=== PATIENT | female | born 1975 | race Caucasian/White ===

== ENCOUNTER 2020-07-24 08:00 | Inpatient (IN) | payer OTHER ==
[2020-08-22 08:50] VITALS: BMI 25.0
--- NOTE | 2020-08-22 16:38 | CONSULT ---
Consultation: REQUESTING PROVIDER: CONSULT REQUEST: We have been asked to medically evaluate this patient for pre- operative medical optimization for Cervical 5 & 6 Corpectomies and Reconstruction w/ Cage and Plate per Dr. Patel's Note HISTORY OF PRESENT ILLNESS: 44 yo F w/ PMHx of reported HLD, arthritis in hands b/l, and migraine headaches presents for pre-operative medical evaluation for cervical surgery w/ Dr. Patel, referred by Dr. Noah Santo. Ptn endorses 2 years of neck pain and back pain in the lumbar region, constant in nature, w/ variable intensity which radiates towards her legs and arms. Pain is worse with extending sitting, which results in numbness and tingling. Ptn believes that the pain is due to her work at [employer] and the heavy lifting she has been doing there. Imaging was VITALS: T: 98.2 P: 85 BP 134/73 O2Sat 99% REVIEW OF SYSTEMS: CONSTITUTIONAL: Absent: fever, chills, diaphoresis, generalized weakness, malaise, loss of appetite, weight change HEENT: Absent: rhinorrhea, nasal congestion, throat pain, throat swelling, difficulty swallowing, mouth swelling, ear pain, eye pain, visual changes CARDIOVASCULAR: Absent: chest pain, syncope, palpitations, irregular heart rate, lightheadedness, peripheral edema RESPIRATORY: Absent: cough, shortness of breath, dyspnea with exertion, orthopnea, wheezing, stridor, hemoptysis GASTROINTESTINAL: Absent: abdominal pain, abdominal distension, nausea, vomiting, diarrhea, nicole na, hematochezia Present: Constipation GENITOURINARY: Absent: dysuria, frequency, urgency, hesitancy, hematuria, flank pain, genital pain MUSCULOSKELETAL: See HPI SKIN: Absent: rash, itching, pallor HEMATOLOGIC/IMMUNOLOGIC: Absent: easy bleeding, easy bruising, lymphadenopathy, frequent infections ENDOCRINE: Absent: unexplained weight gain, unexplained weight loss, heat intolerance, cold intolerance NEUROLOGIC: Absent:focal weakness or paresthesias, dizziness, unsteady gait, seizure, mental status changes, bladder or bowel incontinence Present: Migraine PSYCHIATRIC: Absent: anxiety, depression, suicidal or homicidal ideation, hallucinations. PHYSICAL EXAMINATION GENERAL: Awake, alert, and fully oriented, in no acute distress. HEAD: Normal with no signs of trauma. EYES: Pupils equal, round and reactive to light, extraocular movements intact, sclera anicteric, conjunctiva clear. No lid lag. EARS, NOSE, THROAT: Ears normal, nares patent, oropharynx clear without exudates. Moist mucous membranes. NECK: Normal range of motion, supple without lymphadenopathy, JVD, or masses. LUNGS: Breath sounds equal, clear to auscultation bilaterally. No wheezes, and no crackles. No accessory muscle use. HEART: Regular rate and rhythm, normal S1 and S2 without murmur, rub or gallop. ABDOMEN: Soft, nontender, not distended, normoactive bowel sounds MUSCULOSKELETAL: Normal range of motion at all joints. No bony deformities or tenderness. No CVA tenderness. UPPER EXTREMITIES: 2+ pulses, warm, well-perfused. No cyanosis. No clubbing. Cap refill <2 seconds. No peripheral edema. LOWER EXTREMITIES: 2+ pulses, warm, well-perfused. No calf tenderness. No peripheral edema. NEUROLOGICAL: Cranial nerves II-XII intact. Normal speech. Normal gait. PSYCHIATRIC: Cooperative. Good eye contact. Appropriate mood and affect. SKIN: Warm, dry, normal turgor, no rashes or lesions noted. ASSESSMENT/PLAN: Dispo: We will continue to follow the patient. Thank you for this consultative opportunity. ATTENDING PHYSICIAN STATEMENT I saw and evaluated the patient. I reviewed the resident's note and discussed the case with the resident. I agree with the resident's findings and plan as documented. SUBJECTIVE: OBJECTIVE: ASSESSMENT AND PLAN:
[2020-08-23] MEDS ORDERED: PNEUMOC 13-VAL CONJ-DIP CRM/PF 0.5 ML DISP.SYRIN IM ONE (06:43)
[2020-08-23] MEDS ORDERED: LIDOCAINE 1%/EPI 1:100000 (50 ML MULTI DOSE VIAL) ONE (07:11)
[2020-08-23] MEDS ORDERED: GENTAMICIN SO4 80 MG/2 ML VIAL ONE (07:11)
[2020-08-23] MEDS ORDERED: THROMBIN (BOVINE) 20,000 UNIT VIAL TP ONE (07:12)
[2020-08-23] MEDS ORDERED: PROPOFOL 20 ML ONE ×4 (07:43→09:53)
[2020-08-23] MEDS ORDERED: fentaNYL CITRATE 250 MCG/5 ML VIAL ONE (07:43)
[2020-08-23] MEDS ORDERED: ROCURONIUM BROMIDE 50 MG/5 ML SYRINGE ONE ×2 (07:44→09:02)
[2020-08-23] MEDS ORDERED: MIDAZOLAM HCL 2 MG/2 ML SINGLE DOSE VIAL ONE (07:44)
--- NOTE | 2020-08-23 08:17 | HP ---
History & Physical Update - History History: No Change - Physical Physical: No Change - Assessment Assessment: No Change - Plan Plan: No Change (Full H&P in chart from 08/22/20)
[2020-08-23] MEDS ORDERED: ceFAZolin SODIUM 1 GM VIAL IVPB ONE (08:45)
[2020-08-23] MEDS ORDERED: LIDOCAINE 1%/EPI 1:100000 (50 ML MULTI DOSE VIAL) INF ONE (08:49)
[2020-08-23] MEDS ORDERED: VANCOMYCIN 1,000 MG VIAL (RESTRICTED TO ID ONLY) IVPB ONE (08:50)
[2020-08-23] MEDS ORDERED: GLYCOPYRROLATE 0.2 MG/1 ML VIAL ONE (08:55)
[2020-08-23] MEDS ORDERED: DEXAMETHASONE SOD PHOSPHATE 4 MG/1 ML VIAL ONE ×2 (08:55→15:30)
[2020-08-23] MEDS ORDERED: LIDOCAINE HCL/PF 2% SDV 5ML VIAL ONE ×2 (08:55→15:30)
[2020-08-23] MEDS ORDERED: ONDANSETRON 4 MG/2 ML VIAL ONE (08:55)
[2020-08-23] MEDS ORDERED: NEOSTIGMINE METHYLSULFATE 0.5 MG/1 ML - 10 ML MDV ONE (08:55)
[2020-08-23] MEDS ORDERED: HYDROmorphone HCl 2 MG/ML VIAL ONE ×2 (08:58→10:12)
[2020-08-23] MEDS ORDERED: THROMBIN (BOVINE) 5,000 UNIT VIAL TP ONE (09:30)
[2020-08-23] MEDS ORDERED: GELATIN, ABSORBABLE 100 EACH SPONGE TP ONE (09:30)
[2020-08-23] MEDS ORDERED: diphenhydrAMINE HCL 25 MG CAPSULE (FP) PO PRN (10:48)
[2020-08-23] MEDS ORDERED: oxyCODONE HCL 5 MG TABLET PO PRN (10:48)
[2020-08-23] MEDS ORDERED: ONDANSETRON 4 MG/2 ML VIAL IVPUSH PRN (10:48)
--- NOTE | 2020-08-23 11:27 | OP ---
Operative Note - Note: Operative Date: 08/23/20 Pre-Operative Diagnosis: Cervical spondylosis Operation: C5-6 corpectomies with decompression of spondylosis and reconstruction with cage and anterior plating Post-Operative Diagnosis: Same as Pre-op Surgeon: Joe Patel Kennel Staff Member: Corby Smith Anesthesiologist/[employer]ATION HELPER: Edson Roblero Anesthesia: General Estimated Blood Loss (mls): 25 Operative Report Dictated: Yes
[2020-08-23] MEDS ORDERED: SODIUM CHLORIDE 0.9% P/F 10 ML VIAL IJ ONE (15:30)
[2020-08-23] MEDS ORDERED: ceFAZolin SODIUM 1 GM VIAL ONE ×2 (15:30→19:01)
[2020-08-23] MEDS ORDERED: VANCOMYCIN 1,000 MG VIAL (RESTRICTED TO ID ONLY) ONE (15:30)
[2020-08-23] MEDS ORDERED: LIDOCAINE HCL 2% JELLY (5 ML/TUBE) ONE (15:30)
[2020-08-23] MEDS: DOCUSATE SODIUM 100 MG CAPSULE (FP) PO SCH ×2 (16:01→21:31)
[2020-08-23] MEDS: GABAPENTIN 300 MG CAPSULE PO SCH ×2 (16:02→21:31)
[2020-08-23] MEDS: HEPARIN NA (PORCINE) 5,000 UNITS/ML 1ML VIAL SQ SCH ×2 (16:02→21:31)
--- NOTE | 2020-08-23 16:11 | HP ---
CHIEF COMPLAINT: post-operative admission PCP: HISTORY OF PRESENT ILLNESS: Patient is a 44 year old female with history of cervical radiculopathy, arthritis bilateral hands, hyperlipidemia, presents s/p C5-6 corpectomies with decompression of spondylosis and reconstruction with cage and anterior plating with Dr. Patel. She endorses history of two years of chronic neck pain with radiation to her bilateral arms. She has attempted prior injections with Dr. Bowie (pain management) that have not been significantly palliative. Upon my encounter, postoperatively, patient endorses pain is well controlled. She denies subjective fevers, chills, shortness of breath, chest pain, palpitations, abdominal pain, nausea, vomiting. Recent Travel: denies PAST MEDICAL HISTORY: cervical radiculopathy, arthritis bilateral hands, hyperlipidemia PAST SURGICAL HISTORY: tonsilectomy Social History: Smoking: smokes 1-2 cigarettes daily Alcohol: drinks occasionally on social occasion Drugs: denies illicit drug use Family History: Noncontributory Allergies No Known Allergies Allergy (Unverified 08/23/20 06:56) HOME MEDICATIONS: Home Medications Medication Instructions Recorded Gabapentin [Neurontin] 300 mg PO TID 08/22/20 Tizanidine HCl [Zanaflex (Nf) -] 2 mg NR BID 08/22/20 Albuterol Sulfate Inhaler - 2 inh PO ONCE 08/23/20 [Ventolin Hfa Inhaler -] REVIEW OF SYSTEMS CONSTITUTIONAL: Absent: fever, chills, diaphoresis, generalized weakness, malaise, loss of appetite, weight change HEENT: Absent: rhinorrhea, nasal congestion, throat pain, throat swelling, difficulty swallowing, mouth swelling, ear pain, eye pain, visual changes CARDIOVASCULAR: Absent: chest pain, syncope, palpitations, irregular heart rate, lightheadedness, peripheral edema RESPIRATORY: Absent: cough, shortness of breath, dyspnea with exertion, orthopnea, wheezing, stridor, hemoptysis GASTROINTESTINAL: Absent: abdominal pain, abdominal distension, nausea, vomiting, diarrhea, constipation, melena, hematochezia GENITOURINARY: Absent: dysuria, frequency, urgency, hesitancy, hematuria, flank pain, genital pain MUSCULOSKELETAL: Absent: myalgia, arthralgia, joint swelling, back pain, neck pain SKIN: Absent: rash, itching, pallor HEMATOLOGIC/IMMUNOLOGIC: Absent: easy bleeding, easy bruising, lymphadenopathy, frequent infections ENDOCRINE: Absent: unexplained weight gain, unexplained weight loss, heat intolerance, cold intolerance NEUROLOGIC: Absent: headache, focal weakness or paresthesias, dizziness, unsteady gait, seizure, mental status changes, bladder or bowel incontinence PSYCHIATRIC: Absent: anxiety, depression, suicidal or homicidal ideation, hallucinations. PHYSICAL EXAMINATION Vital Signs - 24 hr 08/23/20 08/23/20 08/23/20 06:39 06:46 06:47 Temperature 97.8 F 97.8 F Pulse Rate 78 78 Respiratory 20 20 Rate Blood Pressure 106/42 L 106/42 L O2 Sat by Pulse 97 97 97 Oximetry (%) 08/23/20 08/23/20 08/23/20 10:33 10:45 11:00 Temperature 98.4 F Pulse Rate 101 H 104 H 103 H Respiratory 20 16 16 Rate Blood Pressure 168/91 162/89 150/85 O2 Sat by Pulse 96 96 96 Oximetry (%) 08/23/20 08/23/20 08/23/20 11:15 11:30 11:45 Temperature Pulse Rate 102 H 94 H 98 H Respiratory 16 16 16 Rate Blood Pressure 141/74 148/88 146/70 O2 Sat by Pulse 96 95 94 L Oximetry (%) 08/23/20 08/23/20 08/23/20 12:00 12:15 12:30 Temperature Pulse Rate 96 H 96 H 96 H Respiratory 16 16 16 Rate Blood Pressure 152/68 120/80 124/78 O2 Sat by Pulse 94 L 94 L 94 L Oximetry (%) 08/23/20 08/23/20 12:45 13:00 Temperature 98.8 F Pulse Rate 96 H 94 H Respiratory 16 16 Rate Blood Pressure 130/67 124/68 O2 Sat by Pulse 94 L 95 Oximetry (%) GENERAL: Awake, alert, and fully oriented, in no acute distress. HEAD: Normal with no signs of trauma. EYES: Pupils equal, round and reactive to light, extraocular movements intact, sclera anicteric, conjunctiva clear. No lid lag. EARS, NOSE, THROAT: Ears normal, nares patent, oropharynx clear without exudates. Moist mucous membranes. NECK: Cervical collar in place. Anterior surgical site bandaged clean, dry, intact. Negative stridor auscultated. LUNGS: Breath sounds equal, clear to auscultation bilaterally. No wheezes, and no crackles. No accessory muscle use. HEART: Regular rate and rhythm, normal S1 and S2 without murmur, rub or gallop. ABDOMEN: Soft, nontender, not distended, normoactive bowel sounds, no guarding, no rebound, no masses. No hepatomegaly or splenomegaly. MUSCULOSKELETAL: Normal range of motion at all joints. No bony deformities or tenderness. No CVA tenderness. UPPER EXTREMITIES: 2+ pulses, warm, well-perfused. No cyanosis. No clubbing. No peripheral edema. LOWER EXTREMITIES: 2+ pulses, warm, well-perfused. No calf tenderness. No peripheral edema. NEUROLOGICAL: Cranial nerves II-XII intact. Normal speech. Normal gait. PSYCHIATRIC: Cooperative. Good eye contact. Appropriate mood and affect. SKIN: Warm, dry Laboratory Results - last 24 hr 08/23/20 08:40 Blood Type A NEGATIVE Antibody Screen Negative Crossmatch See Detail ASSESSMENT/PLAN: Patient is a 44 year old female with history of cervical radiculopathy, arthritis bilateral hands, hyperlipidemia, presents s/p C5-6 corpectomies with decompression of spondylosis and reconstruction with cage and anterior plating with Dr. Patel. Cervical radiculopathy -s/p C5-6 corpectomies with decompression of spondylosis and reconstruction with cage and anterior plating with Dr. Patel. -Ancef 1 gram Q8 hours x3 doses postoperatively -Pain management with Oxycodone, Morphine -Physical therapy evaluation -LR at 125mL/ hour -Soft diet, advance per surgery -Continue home Gabapentin History of mild, intermittent asthma -Currently not in exacerbation -Albuterol 2 puffs q4 hours PRN History of hyperlipidemia -Currently not on statin -Obtain fasting lipid panel FEN -LR at 125mL/ hour -Follow BMP -Soft diet Prophylaxis Disposition -Admit to medical -surgical floor Anticipate discharge home within 24- 48 hours Family Medical History Family History: Unremarkable Visit type - Emergency Visit Emergency Visit: Yes ED Registration Date: 08/23/20 Care time: The patient presented to the Emergency Department on the above date and was hospitalized for further evaluation of their emergent condition. - New Patient This patient is new to me today: No - Critical Care Critical Care patient: No ATTENDING PHYSICIAN STATEMENT I saw and evaluated the patient. I reviewed the resident's note and discussed the case with the resident. I agree with the resident's findings and plan as documented. SUBJECTIVE: OBJECTIVE: ASSESSMENT AND PLAN:
[2020-08-23] MEDS: morphine SULFATE 4 MG/ML VIAL IVPUSH PRN ×2 (17:04→21:35)
[2020-08-23] MEDS: LACTATED RINGERS SOLUTION 1,000 ML/1,000 ML INFUS.BAG IV SCH ×2 (17:05→19:06)
[2020-08-23] MEDS ORDERED: CEFAZOLIN 1 GM/D5W 1 GM/50 ML BAG IVPB SCH (18:00)
[2020-08-23] MEDS ORDERED: CEFAZOLIN 1 GM in DEXTROSE 5%-WATER - 50 ML IVPB SCH (18:27)
[2020-08-23] MEDS: oxyCODONE HCL 5 MG TABLET PO PRN ×2 (18:28→22:37)
--- NOTE | 2020-08-23 18:55 | PN ---
Teaching Attending Note Name of Resident: Sánchez Aguilarjonny ATTENDING PHYSICIAN STATEMENT I saw and evaluated the patient. I reviewed the resident's note and discussed the case with the resident. I agree with the resident's findings and plan as documented. ATTENDING PHYSICIAN STATEMENT I saw and evaluated the patient. I reviewed the resident's note and discussed the case with the resident. I agree with the resident's findings and plan as documented. SUBJECTIVE: Patient seen and examined on 08/22/2020 for medical clearance for surgery in AM, scheduled for C-spine decompression/corpectomy in AM, denies complaints except for chronic neck and arm pain. VSS. OBJECTIVE: GA comfortable, ambulatory, NAD HEENT NC/AT, limited ROm of neck d/t pain, MMM, EOMI Chest CTAB, no crackles or wheezing CVS s1, S2+, RRR, no m/r/g Abd Soft, NT, ND, BS+ Ext no LE edema, no calf tenderness Moves all 4 ext. Vital Signs (72 hours) 08/23/20 08/23/20 08/23/20 06:39 06:46 06:47 Temperature 97.8 F 97.8 F Pulse Rate 78 78 Respiratory 20 20 Rate Blood Pressure 106/42 L 106/42 L O2 Sat by Pulse 97 97 97 Oximetry (%) 08/23/20 08/23/20 08/23/20 10:33 10:45 11:00 Temperature 98.4 F Pulse Rate 101 H 104 H 103 H Respiratory 20 16 16 Rate Blood Pressure 168/91 162/89 150/85 O2 Sat by Pulse 96 96 96 Oximetry (%) 08/23/20 08/23/20 08/23/20 11:15 11:30 11:45 Temperature Pulse Rate 102 H 94 H 98 H Respiratory 16 16 16 Rate Blood Pressure 141/74 148/88 146/70 O2 Sat by Pulse 96 95 94 L Oximetry (%) 08/23/20 08/23/20 08/23/20 12:00 12:15 12:30 Temperature Pulse Rate 96 H 96 H 96 H Respiratory 16 16 16 Rate Blood Pressure 152/68 120/80 124/78 O2 Sat by Pulse 94 L 94 L 94 L Oximetry (%) 08/23/20 08/23/20 08/23/20 12:45 13:00 15:00 Temperature 98.8 F 98.8 F Pulse Rate 96 H 94 H 94 H Respiratory 16 16 16 Rate Blood Pressure 130/67 124/68 124/68 O2 Sat by Pulse 94 L 95 95 Oximetry (%) Laboratory Results - last 24 hr 08/23/20 08:40 Blood Type A NEGATIVE Antibody Screen Negative Crossmatch See Detail Home Medications Medication Instructions Recorded Gabapentin [Neurontin] 300 mg PO TID 08/22/20 Tizanidine HCl [Zanaflex (Nf) -] 2 mg NR BID 08/22/20 Albuterol Sulfate Inhaler - 2 inh PO ONCE 08/23/20 [Ventolin Hfa Inhaler -] Current Medications Generic Name Dose Route Start Last Admin Trade Name Freq PRN Reason Stop Dose Admin Albuterol Sulfate 2 puff 08/23/20 11:00 Ventolin Hfa Inhaler - IH ONCE ISREAL Diphenhydramine HCl 25 mg 08/23/20 10:48 Benadryl - PO Q6H PRN FOR ITCHING Docusate Sodium 100 mg 08/23/20 14:00 08/23/20 16:01 Colace - PO 100 mg TID [facility] Administration Fentanyl 50 mcg 08/23/20 10:54 Sublimaze Injection - IVPUSH [id number] PRN PAIN-PACU ORDER X 4 DOSES ONLY Ferrous Sulfate 325 mg 08/24/20 10:00 Feosol - PO DAILY [facility] Folic Acid 1 mg 08/24/20 10:00 Folic Acid - PO DAILY [facility] Gabapentin 300 mg 08/23/20 14:00 08/23/20 16:02 Neurontin - PO 300 mg TID ISREAL Administration Heparin Sodium (Porcine) 5,000 unit 08/23/20 15:00 08/23/20 16:02 Heparin - SQ 5,000 unit TID [facility] Administration Lactated Ringer's 1,000 ml in 1,000 mls @ 125 mls/hr 08/23/20 11:00 08/23/20 17:05 Lactated Ringers Solution IV Not Given ASDIR [facility] Cefazolin Sodium 1 gm/ 50 mls @ 100 mls/hr 08/23/20 18:00 Dextrose IVPB 08/25/20 17:59 Q8H-IV ISREAL Morphine Sulfate 4 mg 08/23/20 10:48 08/23/20 17:04 Morphine Sulfate IVPUSH 4 mg Q4H PRN Administration PAIN LEVEL 7 - 10 Non-Formulary Medication 2 mg 10/08/20 22:00 Tizanidine Hcl NR BID ISREAL Ondansetron HCl 4 mg 08/23/20 10:48 Zofran Injection IVPUSH Q6H PRN NAUSEA Oxycodone HCl 5 mg 08/23/20 10:48 Roxicodone - PO Q4H PRN PAIN LEVEL 1-5 Oxycodone HCl 10 mg 08/23/20 10:48 08/23/20 18:28 Roxicodone - PO 10 mg Q4H PRN Administration PAIN LEVEL 6-10 Pneumococcal Polyvalent Vaccine 0.5 ml 08/23/20 20:00 Pneumovax - IM 08/23/20 20:01 .ONCE ONE ASSESSMENT AND PLAN: 44 F Cervical radiculopathy requiring C-spine decompression active smoker Chronic pain Neuropathy Plan: Albuterol 2 puffs Am before procedure Strongly encouraged to stop smoking NPO MN Perioperative abx per NSG EKG, CXR unremarkable Avoid NSAIDs at least 3-5 days prior to procedure Early ambulation, PT post-op Low-moderate risk for moderate risk procedure DVT ppx: per NSG team
[2020-08-23] MEDS ORDERED: DEXTROSE 5%-WATER - 50 ML IVPB ONE (19:01)
[2020-08-23] MEDS: CEFAZOLIN 1 GM in DEXTROSE 5%-WATER - 50 ML IVPB SCH (19:06)
[2020-08-23] MEDS ORDERED: PNEUMOCOCCAL 23 VACCINE 0.5 ML VIAL IM ONE (20:00)
[2020-08-23] MEDS ORDERED: PATIENT'S OWN MEDICATION (NON-FORMULARY) (Tizanidine Hcl 2 MG) NR SCH (22:00)
[2020-08-24] MEDS ORDERED: ceFAZolin SODIUM 1 GM VIAL ONE ×2 (01:18→09:45)
[2020-08-24] MEDS ORDERED: DEXTROSE 5%-WATER - 50 ML IVPB ONE ×2 (01:18→09:46)
[2020-08-24] MEDS: CEFAZOLIN 1 GM in DEXTROSE 5%-WATER - 50 ML IVPB SCH ×2 (01:21→10:00)
[2020-08-24] MEDS: morphine SULFATE 4 MG/ML VIAL IVPUSH PRN ×3 (04:27→18:39)
[2020-08-24] MEDS: LACTATED RINGERS SOLUTION 1,000 ML/1,000 ML INFUS.BAG IV SCH (04:36)
[2020-08-24] MEDS: GABAPENTIN 300 MG CAPSULE PO SCH ×3 (06:25→21:08)
[2020-08-24] MEDS: HEPARIN NA (PORCINE) 5,000 UNITS/ML 1ML VIAL SQ SCH ×3 (06:25→21:08)
[2020-08-24] MEDS: DOCUSATE SODIUM 100 MG CAPSULE (FP) PO SCH ×3 (06:25→21:08)
--- NOTE | 2020-08-24 07:53 | PN ---
Progress Note (short form) - Note Progress Note: Surgery: Pt ate dinner last pm without difficulty. Complains of pain to upper shoulders/posterior neck b/l. Voiding. Vital Signs Period Temp Pulse Resp BP Sys/Whittaker Pulse Ox Last 24 Hr 97.9 F-98.8 F 67-104 16-20 120-168/67-94 94-98 MARYELLEN: 120ml serosangrenous GEN: A&0x3, NAD Neck: [place] J collar in place. Inc c/d/i. No masses Neuro: 5/5 plantar flexion b/l. 4/5 drosiflexion b/l. 3/5 EHL. No calf tenderness or swelling noted b/l. SCDs in place CBC, BMP 08/24/20 07:25 08/24/20 07:25 A/p: 44 yo female s/p C5/6 decompression/CAGE and anterior plate placement, POD#1 D/w Dr. Trejo, pt doing well clinically OOB to chair/ambulate Drain to be removed today Pain management, added Tylenol IV for better pain relief with gabapentin, muscle relaxants and oral narcotics(as needed) Discharge instructions completed in the chart
[2020-08-24 09:07] LABS: HEMATOCRIT 36.2 % (32.4-45.2); HEMOGLOBIN 12.2 GM/dL (10.7-15.3); MCH 32.7 pg (25.7-33.7); MCHC 33.8 g/dl (32.0-36.0); MEAN CELL VOLUME 96.7 fl (80-96); MEAN PLT VOLUME 7.9 fl (7.5-11.1); PLATELET COUNT 224 K/MM3 (134-434); RBC 3.75 M/mm3 (3.60-5.2); RDW 13.4 % (11.6-15.6); WHITE BLOOD COUNT 12.1 K/mm3 (4.0-10.0)
[2020-08-24 09:18] LABS: BLOOD UREA NITROGEN 9.1 mg/dL (7-18); CALCIUM 8.6 mg/dL (8.5-10.1); CREATININE 0.6 mg/dL (0.55-1.3); POTASSIUM 4.1 mmol/L (3.5-5.1)
[2020-08-24] MEDS ORDERED: FERROUS SO4 325 MG TABLET (FP) PO SCH (10:00)
[2020-08-24] MEDS: TIZANIDINE HCL 2 MG TABLET PO SCH ×2 (10:03→21:09)
[2020-08-24] MEDS: FOLIC ACID 1 MG TABLET (FP) PO SCH (10:03)
[2020-08-24] MEDS: ACETAMINOPHEN 1000 MG/100 ML VIAL (NON FORMULARY) IVPB SCH ×4 (10:03→20:57)
--- NOTE | 2020-08-24 12:44 | PN ---
Progress Note (short form) - Note Progress Note: Anesthesia Post op Pt seen and examined S:Alert and awake mild pain O: Vital Signs Temperature 98.4 F 08/24/20 06:48 Pulse Rate 67 08/24/20 06:48 Respiratory Rate 18 08/24/20 06:48 Blood Pressure 144/93 08/24/20 06:48 O2 Sat by Pulse Oximetry (%) 98 08/24/20 06:48 CBC, BMP 08/24/20 07:25 08/24/20 07:25 A/P: s/p c3-c6 colpectomy Doing well post op Continue current care Italo King MD
--- NOTE | 2020-08-24 13:31 | PN ---
Physical Exam: SUBJECTIVE: Patient seen and examined at bedside. No acute events overnight. This morning the patient is c/o pain. OBJECTIVE: Vital Signs Period Temp Pulse Resp BP Sys/Whittaker Pulse Ox Last 24 Hr 97.9 F-98.8 F 64-94 16-20 124-152/68-94 93-98 GENERAL: AAOx3, in no acute distress HEENT: NCAT, PERRLA, EOMI, sclera anicteric, conjunctiva clear, oropharynx clear w/o exudates. MMM. NECK: [place] J collar in place. pain with neck movement. unable to assess full ROM of neck due to pain. LUNGS: CTABL no wheezes/ rhonchi/ rales. No distress, speaks in full sentences. No increased work of breathing. HEART: RRR, normal S1 S2, no M/R/G, peripheral pulses 2+ and equal b/l ABDOMEN: Soft, NTND, + BS. No guarding or rebound. No hepatomegaly or splenomegaly. MSK: ROM WNL EXTREMITIES: Normal inspection. No peripheral edema. No clubbing or cyanosis. NEUROLOGICAL: CN II-XII intact. Normal speech, normal gait, no focal sensorimotor deficits. SKIN: Warm, Dry, normal turgor, no rashes or lesions noted Laboratory Results - last 24 hr CBC, BMP 08/24/20 07:25 08/24/20 07:25 08/24/20 08/24/20 07:25 07:25 WBC 12.1 H RBC 3.75 Hgb 12.2 Hct 36.2 MCV 96.7 H MCH 32.7 MCHC 33.8 RDW 13.4 Plt Count 224 MPV 7.9 Sodium 135 L Potassium 4.1 Chloride 102 Carbon Dioxide 27 Anion Gap 6 L BUN 9.1 Creatinine 0.6 Est GFR (CKD-EPI)AfAm 126.69 Est GFR (CKD-EPI)NonAf 109.31 Random Glucose 98 Calcium 8.6 Triglycerides 165 H Cholesterol 225 H Total LDL Cholesterol 155 H HDL Cholesterol 62 H Active Medications Generic Name Dose Route Start Last Admin Trade Name Freq PRN Reason Stop Dose Admin Acetaminophen 1,000 mg 08/24/20 08:00 08/24/20 13:16 Ofirmev Injection - IVPB 08/25/20 02:01 Not Given Q6H ISREAL Albuterol Sulfate 2 puff 08/23/20 11:00 Ventolin Hfa Inhaler - IH ONCE ISREAL Diphenhydramine HCl 25 mg 08/23/20 10:48 08/23/20 19:05 Benadryl - PO 25 mg Q6H PRN Administration FOR ITCHING Docusate Sodium 100 mg 08/23/20 14:00 08/24/20 13:15 Colace - PO 100 mg TID ISREAL Administration Folic Acid 1 mg 08/24/20 10:00 08/24/20 10:03 Folic Acid - PO 1 mg DAILY ISREAL Administration Gabapentin 300 mg 08/23/20 14:00 08/24/20 13:16 Neurontin - PO 300 mg TID ISREAL Administration Heparin Sodium (Porcine) 5,000 unit 08/23/20 15:00 08/24/20 13:14 Heparin - SQ 5,000 unit TID ISREAL Administration Cefazolin Sodium 1 gm/ 50 mls @ 100 mls/hr 08/23/20 18:00 08/24/20 10:00 Dextrose IVPB 08/25/20 17:59 100 mls/hr Q8H-IV ISREAL Administration Morphine Sulfate 4 mg 08/23/20 10:48 08/24/20 12:50 Morphine Sulfate IVPUSH 4 mg Q4H PRN Administration PAIN LEVEL 7 - 10 Ondansetron HCl 4 mg 08/23/20 10:48 Zofran Injection IVPUSH Q6H PRN NAUSEA Oxycodone HCl 5 mg 08/23/20 10:48 Roxicodone - PO Q4H PRN PAIN LEVEL 1-5 Oxycodone HCl 10 mg 08/23/20 10:48 08/23/20 22:37 Roxicodone - PO 10 mg Q4H PRN Administration PAIN LEVEL 6-10 Tizanidine HCl 2 mg 08/24/20 10:00 08/24/20 10:03 Tizanidine Hcl PO 2 mg BID ISREAL Administration ASSESSMENT/PLAN: 44 y/o lady with PMX of cervical radiculopathy, b/l hand arthritis, hyperli pidemia, presenting s/p C5-6 corpectomies with decompression of spondylosis and reconstruction with cage and anterior plating with Dr. Patel. #s/p C5-6 corpectomies with decompression of spondylosis and reconstruction with cage and anterior plating -Ancef 1 gram Q8 hours x3 doses postoperatively as per Dr. Patle -Oxycodene and Morphine PRN for pain management -Physical therapy on board -LR at 125mL/ hour -currently on Soft diet, advance per surgery -c/w home med Gabapentin #mild, intermittent asthma -controlled -no wheezing or SOB on today's exam -Albuterol 2 puffs q4 hours PRN #HLD -currently not on any HLD meds -f/u outpt #FEN -LR at 125mL/ hour -monitor lytes; replete PRN -Soft diet #Prophylaxis -DVT: Heparin SQ TID Dispo: continue to monitor in m/s Visit type - Emergency Visit Emergency Visit: No - New Patient This patient is new to me today: Yes Date on this admission: 08/24/20 - Critical Care Critical Care patient: No - Discharge Referral Referred to [facility] Med P.C.: No ATTENDING PHYSICIAN STATEMENT I saw and evaluated the patient. I reviewed the resident's note and discussed the case with the resident. I agree with the resident's findings and plan as documented. SUBJECTIVE: OBJECTIVE: ASSESSMENT AND PLAN:
[2020-08-24] MEDS ORDERED: diazePAM 5 MG TABLET PO ONE (15:50)
[2020-08-24] MEDS ORDERED: ALBUTEROL SO4 HFA INHALER IH PRN (17:21)
--- NOTE | 2020-08-24 17:33 | PN ---
Teaching Attending Note Name of Resident: Neal Ni ATTENDING PHYSICIAN STATEMENT I saw and evaluated the patient. I reviewed the resident's note and discussed the case with the resident. I agree with the resident's findings and plan as documented. SUBJECTIVE: Complains of ongoing neck discomfort. OBJECTIVE: Afebrile, Hemodynamically stable. Tolerating diet, passing flatus. Last Vital Signs Temp Pulse Resp BP Pulse Ox 98.4 F 64 20 127/70 93 L 08/24/20 13:20 08/24/20 13:20 08/24/20 13:20 08/24/20 13:20 08/24/20 13:20 HEENT - Cervical Collar on, surgical site dressed, MARYELLEN drain with serosanguinous fluid from surgical site at posterior neck Heart - S1, S2, RRR Lungs - clear to auscultation Abdomen - Soft, non-tender. Bowel Sounds normal. Extremities - no edema, no calf tenderness. Neuro - AAO x 3. Tone/Power normal all extremities. Laboratory Results - last 24 hr 08/23/20 08/24/20 08/24/20 08:40 07:25 07:25 WBC 12.1 H RBC 3.75 Hgb 12.2 Hct 36.2 MCV 96.7 H MCH 32.7 MCHC 33.8 RDW 13.4 Plt Count 224 MPV 7.9 Sodium 135 L Potassium 4.1 Chloride 102 Carbon Dioxide 27 Anion Gap 6 L BUN 9.1 Creatinine 0.6 Est GFR (CKD-EPI)AfAm 126.69 Est GFR (CKD-EPI)NonAf 109.31 Random Glucose 98 Calcium 8.6 Triglycerides 165 H Cholesterol 225 H Total LDL Cholesterol 155 H HDL Cholesterol 62 H Blood Type A NEGATIVE Antibody Screen Negative Crossmatch See Detail Current Medications Generic Name Dose Route Start Last Admin Trade Name Freq PRN Reason Stop Dose Admin Acetaminophen 1,000 mg 08/24/20 08:00 08/24/20 15:11 Ofirmev Injection - IVPB 08/25/20 02:01 1,000 mg Q6H ISREAL Administration Albuterol Sulfate 2 puff 08/24/20 17:21 Ventolin Hfa Inhaler - IH Q4H PRN SHORTNESS OF BREATH Bacitracin 1 applic 08/25/20 10:00 Bacitracin - TP DAILY ISREAL Diphenhydramine HCl 25 mg 08/23/20 10:48 08/23/20 19:05 Benadryl - PO 25 mg Q6H PRN Administration FOR ITCHING Docusate Sodium 100 mg 08/23/20 14:00 08/24/20 13:15 Colace - PO 100 mg TID ISREAL Administration Folic Acid 1 mg 08/24/20 10:00 08/24/20 10:03 Folic Acid - PO 1 mg DAILY ISREAL Administration Gabapentin 300 mg 08/23/20 14:00 08/24/20 13:16 Neurontin - PO 300 mg TID ISREAL Administration Heparin Sodium (Porcine) 5,000 unit 08/23/20 15:00 08/24/20 13:14 Heparin - SQ 5,000 unit TID ISREAL Administration Morphine Sulfate 4 mg 08/23/20 10:48 08/24/20 12:50 Morphine Sulfate IVPUSH 4 mg Q4H PRN Administration PAIN LEVEL 7 - 10 Ondansetron HCl 4 mg 08/23/20 10:48 Zofran Injection IVPUSH Q6H PRN NAUSEA Oxycodone HCl 5 mg 08/23/20 10:48 Roxicodone - PO Q4H PRN PAIN LEVEL 1-5 Oxycodone HCl 10 mg 08/23/20 10:48 08/23/20 22:37 Roxicodone - PO 10 mg Q4H PRN Administration PAIN LEVEL 6-10 Tizanidine HCl 2 mg 08/24/20 10:00 08/24/20 10:03 Tizanidine Hcl PO 2 mg BID ISREAL Administration Home Medications Medication Instructions Recorded Gabapentin [Neurontin] 300 mg PO TID 08/22/20 Tizanidine HCl [Zanaflex (Nf) -] 2 mg NR BID 08/22/20 Albuterol Sulfate Inhaler - 2 inh PO ONCE 08/23/20 [Ventolin Hfa Inhaler -] ASSESSMENT/PLAN: 44 year old female with history of cervical radiculopathy, arthritis bilateral hands, hyperlipidemia, admitted s/p C5/6 corpectomy with decompression of spondylosis and reconstruction with cage and anterior plating by Dr. Patel. 1. DJD C-Spine with radiculopathy POD 1 s/p C5/6 corpectomies/decompression/CAGE/Anterior plate placement Appears neurologicaly intact. Jalyn-op DVT Px and Analgesia as per Surgery. Tolerating diet, passing flatus. Continue Gabapentin, Tizanidine MARYELLEN drain management as per Sx. No acute medical issues. 2. Asthma - Stable, no evidence of acute exacerbation. Albuterol PRN. 3. HLD - LDL 155, not on Statin. For PCP follow up and out-patient management. DVT Px - SQ as per Sx.
[2020-08-24] MEDS: BACITRACIN 15 GM TUBE TOPICAL OINTMENT TP SCH (18:24)
[2020-08-24] MEDS: oxyCODONE HCL 5 MG TABLET PO PRN (23:07)
[2020-08-25] MEDS: ACETAMINOPHEN 1000 MG/100 ML VIAL (NON FORMULARY) IVPB SCH (02:36)
[2020-08-25] MEDS: DOCUSATE SODIUM 100 MG CAPSULE (FP) PO SCH ×2 (05:34→13:52)
[2020-08-25] MEDS: GABAPENTIN 300 MG CAPSULE PO SCH ×2 (05:34→13:53)
[2020-08-25] MEDS: HEPARIN NA (PORCINE) 5,000 UNITS/ML 1ML VIAL SQ SCH ×2 (05:34→13:52)
[2020-08-25] MEDS: morphine SULFATE 4 MG/ML VIAL IVPUSH PRN (05:35)
[2020-08-25 08:29] LABS: BASO % 0.6 % (0-2.0); EOS % 2.5 % (0-4.5); HEMATOCRIT 34.4 % (32.4-45.2); HEMOGLOBIN 11.7 GM/dL (10.7-15.3); MCH 33.4 pg (25.7-33.7); MEAN CELL VOLUME 98.4 fl (80-96); MONO % 8.6 % (3.8-10.2); NEUT % 61.3 % (42.8-82.8); PLATELET COUNT 194 K/MM3 (134-434); RBC 3.49 M/mm3 (3.60-5.2); RDW 13.5 % (11.6-15.6); WHITE BLOOD COUNT 9.1 K/mm3 (4.0-10.0)
[2020-08-25 08:39] LABS: BLOOD UREA NITROGEN 6.3 mg/dL (7-18); CALCIUM 8.1 mg/dL (8.5-10.1); CREATININE 0.6 mg/dL (0.55-1.3); POTASSIUM 3.6 mmol/L (3.5-5.1)
[2020-08-25 09:30] VITALS: BP 128/70; PULSE 92; TEMP 98.1
[2020-08-25] MEDS ORDERED: oxyCODONE HCL 5 MG TABLET PO PRN (10:22)
[2020-08-25] MEDS: BACITRACIN 15 GM TUBE TOPICAL OINTMENT TP SCH (10:29)
[2020-08-25] MEDS: FOLIC ACID 1 MG TABLET (FP) PO SCH (10:29)
[2020-08-25] MEDS: TIZANIDINE HCL 2 MG TABLET PO SCH (10:29)
--- NOTE | 2020-08-25 13:14 | DS ---
"Physical Exam: SUBJECTIVE: Patient seen and examined OBJECTIVE: Vital Signs Period Temp Pulse Resp BP Sys/Whittaker Pulse Ox Last 24 Hr 97.6 F-98.4 F 64-92 20-20 127-154/70-95 93-98 PHYSICAL EXAM GENERAL: The patient is awake, alert, and fully oriented, in no acute distress. HEAD: Normal with no signs of trauma. EYES: PERRL, extraocular movements intact, sclera anicteric, conjunctiva clear. ENT: Ears normal, nares patent, oropharynx clear without exudates, moist mucous membranes. NECK: Trachea midline, full range of motion, supple. LUNGS: Breath sounds equal, clear to auscultation bilaterally, no wheezes, no crackles, no accessory muscle use. HEART: Regular rate and rhythm, S1, S2 without murmur, rub or gallop. ABDOMEN: Soft, nontender, nondistended, normoactive bowel sounds, no guarding, no rebound, no hepatosplenomegaly, no masses. EXTREMITIES: 2+ pulses, warm, well-perfused, no edema. NEUROLOGICAL: Cranial nerves II through XII grossly intact. Normal speech, gait not observed. PSYCH: Normal mood, normal affect. SKIN: Warm, dry, normal turgor, no rashes or lesions noted. LABS Laboratory Results - last 24 hr 08/23/20 08/24/20 08/25/20 08:40 20:50 06:45 WBC 9.1 RBC 3.49 L Hgb 11.7 Hct 34.4 MCV 98.4 H MCH 33.4 MCHC 34.0 RDW 13.5 Plt Count 194 MPV 8.0 Absolute Neuts (auto) 5.6 Neutrophils % 61.3 Lymphocytes % 27.0 Monocytes % 8.6 Eosinophils % 2.5 Basophils % 0.6 Nucleated RBC % 0 Sodium Potassium Chloride Carbon Dioxide Anion Gap BUN Creatinine Est GFR (CKD-EPI)AfAm Est GFR (CKD-EPI)NonAf Random Glucose Calcium Troponin I < 0.02 Blood Type A NEGATIVE Antibody Screen Negative Crossmatch See Detail 08/25/20 06:45 WBC RBC Hgb Hct MCV MCH MCHC RDW Plt Count MPV Absolute Neuts (auto) Neutrophils % Lymphocytes % Monocytes % Eosinophils % Basophils % Nucleated RBC % Sodium 137 Potassium 3.6 Chloride 102 Carbon Dioxide 27 Anion Gap 7 L BUN 6.3 L Creatinine 0.6 Est GFR (CKD-EPI)AfAm 126.69 Est GFR (CKD-EPI)NonAf 109.31 Random Glucose 101 Calcium 8.1 L Troponin I Blood Type Antibody Screen Crossmatch HOSPITAL COURSE: Date of Admission:08/23/20 Date of Discharge: 08/25/20 Minutes to complete discharge: 36 Discharge Summary Reason For Visit: CERVICAL SPONDYLOSIS Current Active Problems Cervical spondylosis (Acute) Condition: Stable - Instructions Diet, Activity, Other Instructions: Dr. Patel's Post Operative Instructions Physical Activity Resume your normal everyday activity as tolerated. No heavy lifting or exercise until seen by your surgeon. You may walk unlimited amounts and climb stairs. You may resume driving the car when you feel safe and comfortable behind the wheel and you are no longer wearing your brace. Do not operate a vehicle while taking narcotic medication. Brace If you had back surgery, wear TLSO Brace whenever out of bed. May remove to sleep and shower. If you had neck surgery, wear surgical collar 23 hr/day. Remove to shower only. Wound Care Keep your incision clean, dry and covered at all times. Apply an occlusive dressing (Saran wrap or Tegaderm) when showering to avoid getting your incision wet. Do not submerge incision or apply ointments or creams. The suad will be removed in the office in 10-14 days post-op. Diet There are no dietary restrictions. Eat healthy, high-fiber foods. Drink 6-8 glasses of liquid each day. This will assist in keeping your bowels regular. Pain Management You may take Tylenol or acetaminophen. Any pain prescription medication ordered should be taken as prescribed for moderate to severe pain. Avoid any ibuprofen (Motrin, Advil, Aleve, Toradol, etc) for 3 months unless otherwise discussed with your surgeon. Call Dr Maciel for any of the following: Severe pain not relieved by medication Fever of 101 or higher Excessive bleeding or drainage on dressing Inability to urinate Any chest pain or shortness of breath, seek Emergency Care. Call the office to confirm a post-operative appointment for 2-3 weeks post-op Joe Patel MD [facility] [address] [place] [address] [facility] The Drug Utilization Report below displays all of the controlled substance prescriptions, if any, that your patient has filled in the last twelve months. The information displayed on this report is compiled from pharmacy submissions to the Department, and accurately reflects the information as submitted by the pharmacies. This report was requested by: Shyam Harrison | Reference #: [id number] Please follow up with your primary care physician, [facility], within 1 week for overall health care management. Referrals: Joe Patel MD, [facility] [Staff Physician] - 2 Weeks [facility] [Provider Group] - 1 Week Disposition: HOME - Home Medications Comprehensive Discharge Medication List: Ambulatory Orders Gabapentin [Neurontin] 300 mg PO TID 08/22/20 Tizanidine HCl [Zanaflex (Nf) -] 2 mg NR BID 08/22/20 Albuterol Sulfate Inhaler - [Ventolin HFA Inhaler -] 2 inh PO ONCE 08/23/20 - Discharge Referral Referred to [facility] No ATTENDING PHYSICIAN STATEMENT I saw and evaluated the patient. I reviewed the resident's note and discussed the case with the resident. I agree with the resident's findings and plan as documented. SUBJECTIVE: OBJECTIVE: ASSESSMENT AND PLAN:"
--- NOTE | 2020-08-25 16:37 | PN ---
Teaching Attending Note Name of Resident: Marlyn Kirkland ATTENDING PHYSICIAN STATEMENT I saw and evaluated the patient. I reviewed the resident's note and discussed the case with the resident. I agree with the resident's findings and plan as documented. SUBJECTIVE: Complains of ongoing neck/L arm discomfort. OBJECTIVE: Afebrile, Hemodynamically stable. Tolerating diet, passing flatus. Last Vital Signs Temp Pulse Resp BP Pulse Ox 98.1 F 92 H 20 128/70 95 08/25/20 09:29 08/25/20 09:29 08/25/20 09:29 08/25/20 09:29 08/25/20 09:29 HEENT - Cervical Collar on, surgical site dressed, MARYELLEN drain removed 08/24 Heart - S1, S2, RRR Lungs - clear to auscultation Abdomen - Soft, non-tender. Bowel Sounds normal. Extremities - no edema, no calf tenderness. Neuro - AAO x 3. Tone/Power normal all extremities. Limited exam of LUE due to pain. Laboratory Results - last 24 hr 08/24/20 08/25/20 08/25/20 20:50 06:45 06:45 WBC 9.1 RBC 3.49 L Hgb 11.7 Hct 34.4 MCV 98.4 H MCH 33.4 MCHC 34.0 RDW 13.5 Plt Count 194 MPV 8.0 Absolute Neuts (auto) 5.6 Neutrophils % 61.3 Lymphocytes % 27.0 Monocytes % 8.6 Eosinophils % 2.5 Basophils % 0.6 Nucleated RBC % 0 Sodium 137 Potassium 3.6 Chloride 102 Carbon Dioxide 27 Anion Gap 7 L BUN 6.3 L Creatinine 0.6 Est GFR (CKD-EPI)AfAm 126.69 Est GFR (CKD-EPI)NonAf 109.31 Random Glucose 101 Calcium 8.1 L Troponin I < 0.02 Discharge Medications Medication Instructions Recorded Gabapentin [Neurontin] 300 mg PO TID 08/22/20 Tizanidine HCl [Zanaflex (Nf) -] 2 mg NR BID 08/22/20 Albuterol Sulfate Inhaler - 2 inh PO ONCE 08/23/20 [Ventolin HFA Inhaler -] oxyCODONE HCL [Roxicodone -] 5 mg PO Q8H PRN #7 tablet MDD 15mg 08/25/20 ASSESSMENT/PLAN: 44 year old female with history of cervical radiculopathy, arthritis bilateral hands, hyperlipidemia, admitted s/p C5/6 corpectomy with decompression of spondylosis and reconstruction with cage and anterior plating by Dr. Patel. 1. DJD C-Spine with radiculopathy POD 2 s/p C5/6 corpectomies/decompression/CAGE/Anterior plate placement Appears neurologically intact. Dr. Patel informed by resident regarding ongoing neck and LUE pain - patient cleared for discharge from his perspective. Continue Gabapentin, Tizanidine s/p MARYELLEN drain removal 08/24 No acute medical issues. 2. Asthma - Stable, no evidence of acute exacerbation. Albuterol PRN. 3. HLD - LDL 155, not on Statin. For PCP follow up and out-patient management. Medically stable
--- NOTE | 2020-08-26 07:02 | EKG ---
Test Reason : Blood Pressure : / mmHG Vent. Rate : 080 BPM Atrial Rate : 080 BPM P-R Int : 106 ms QRS Dur : 076 ms QT Int : 406 ms P-R-T Axes : 063 058 057 degrees QTc Int : 468 ms SINUS RHYTHM NORMAL ECG WHEN COMPARED WITH ECG OF 18-AUG-2020 11:39, NO SIGNIFICANT CHANGE WAS FOUND BASELINE ARTIFACT Confirmed by ALBINA HALL, RAFA ([id number]) on 08/26/2020 7:02:14 AM Referred By: Joe Patel Confirmed By:RAFA MONTEMAYRO MD
--- NOTE | 2020-09-03 16:32 | SURG ---
Surgery Front Desk Assistant Note Front Desk Assistant: Corby Smith PA-C Date of Service: 08/23/20 Diagnosis: Cervical spondylotic myelopathy Procedure: 1. Interbody Cage 2. C4 caudal hemicorpectomy with resection of osteophytes and posterior longitudinal ligament (technically challenging) 3. C5 corpectomy with resection of osteophytes and posterior longitudinal ligament 4. C6 Corpectomy with resection of osteophytes and posterior longitudinal ligament 5. C7 Rostral Hemicorpectomy with resection of osteophytes and posterior longitudinal ligament 6. Anterior instrumentation C4-C7 (technically challenging) 7. Fluoroscopy 8. Microdissection 9. C4/5 Arthrodesis 10. C5/6 Arthrodesis 11. C6/7 Arthrodesis 12. Local Autograft 13. Deformity Correction (episcopal of lordosis) I was present for the entirety of the operative procedure. For further detail, please refer to operative report. Visit type - New patient This patient is new to me today: Yes Date on this admission: 09/03/20 - Critical Care Critical Care patient: No
== END 2020-08-25 15:09 | disposition home or self-care (01) | DRG 321 ==
LOC: J2C 08-23 06:46 → J8W 08-23 14:08
PROVIDERS: ADMIT Neurological Surgery
PROC: 0RG2070 Fusion of 2 or more Cervical Vertebral Joints with Autologous Tissue Substitute, Anterior Approach, Anterior Column, Open Approach (ICD-10-PCS; 2020-08-23)
PROC: 0PB30ZZ Excision of Cervical Vertebra, Open Approach (ICD-10-PCS; 2020-08-23)
PROC: 00NW0ZZ Release Cervical Spinal Cord, Open Approach (ICD-10-PCS; 2020-08-23)
PROC: B01BZZZ Fluoroscopy of Spinal Cord (ICD-10-PCS; 2020-08-23)
PROC: 4A1004G Monitoring of Central Nervous Electrical Activity, Intraoperative, Open Approach (ICD-10-PCS; 2020-08-23)
PROC: 0PS304Z Reposition Cervical Vertebra with Internal Fixation Device, Open Approach (ICD-10-PCS; 2020-08-23)
PROC: 0RG10A0 Fusion of Cervical Vertebral Joint with Interbody Fusion Device, Anterior Approach, Anterior Column, Open Approach (ICD-10-PCS; principal; 2020-08-23 08:00)
DX: M47.12 Other spondylosis with myelopathy, cervical region (principal); M40.202 Unspecified kyphosis, cervical region; J45.20 Mild intermittent asthma, uncomplicated; E78.5 Hyperlipidemia, unspecified; M54.12 Radiculopathy, cervical region; F17.210 Nicotine dependence, cigarettes, uncomplicated; G89.29 Other chronic pain; G62.9 Polyneuropathy, unspecified
CPT/HCPCS: 36415; 72125-TC; 76000-TC-FY; 80048; 80061; 83721; 84484; 85025; 85027; 86850; 86900; 86901; 86922; 90732; 93005; 93010; 94010; 94760; 97116-GP; 97161-GP; G0009; J0131; J1644

== ENCOUNTER 2021-07-18 10:22 | Emergency (ER) | payer SELFPAY ==
[2021-07-18] MEDS ORDERED: morphine CARPU-JECT 4 MG/1 ML DISP.SYRIN IVPUSH ONE (10:47)
[2021-07-18 10:51] VITALS: TEMP 98.3; BMI 26.6
[2021-07-18] MEDS ORDERED: morphine SULFATE 4 MG/ML VIAL ONE (10:52)
[2021-07-18] MEDS ORDERED: KETAMINE HCL 200 MG/20 ML VIAL IVPUSH ONE ×2 (10:57→12:09)
[2021-07-18] MEDS ORDERED: ONDANSETRON 4 MG/2 ML VIAL IVPUSH ONE (10:57)
[2021-07-18] MEDS ORDERED: MIDAZOLAM HCL 2 MG/2 ML SINGLE DOSE VIAL IVPUSH ONE ×2 (10:57→12:09)
[2021-07-18] MEDS ORDERED: SODIUM CHLORIDE 1,000 ML IV STA (10:58)
[2021-07-18] MEDS ORDERED: KETAMINE HCL 200 MG/20 ML VIAL ONE (11:07)
[2021-07-18] MEDS ORDERED: ONDANSETRON 4 MG/2 ML VIAL ONE (11:08)
[2021-07-18] MEDS ORDERED: MIDAZOLAM HCL 2 MG/2 ML SINGLE DOSE VIAL ONE ×2 (11:08→11:48)
[2021-07-18 11:23] LABS: BASO % 0.8 % (0-2.0); EOS % 1.9 % (0-4.5); HEMATOCRIT 41.9 % (32.4-45.2); HEMOGLOBIN 14.6 GM/dL (10.7-15.3); LYMPH % 19.4 % (8-40); MCH 33.4 pg (25.7-33.7); MCHC 34.8 g/dl (32.0-36.0); MEAN CELL VOLUME 96.2 fl (80-96); MEAN PLT VOLUME 7.3 fl (7.5-11.1); MONO % 6.1 % (3.8-10.2); NEUT % 71.8 % (42.8-82.8); PLATELET COUNT 388 10^3/uL (134-434); RBC 4.36 M/mm3 (3.60-5.2); RDW 13.8 % (11.6-15.6); WHITE BLOOD COUNT 11.1 K/mm3 (4.0-10.0)
[2021-07-18 11:40] LABS: ALBUMIN 4.2 g/dl (3.4-5.0); BLOOD UREA NITROGEN 14.7 mg/dL (7-18); CALCIUM 8.9 mg/dL (8.5-10.1)
[2021-07-18 11:43] LABS: CREATININE 0.7 mg/dL (0.55-1.3)
[2021-07-18 11:45] LABS: BILIRUBIN,TOTAL 1.1 mg/dL (0.2-1); TOT PROT 7.6 g/dl (6.4-8.2)
[2021-07-18 14:37] VITALS: BP 122/89; PULSE 89
== END 2021-07-18 13:59 | disposition home or self-care (01) ==
LOC: JER 10:22
PROC: 0RSJXZZ Reposition Right Shoulder Joint, External Approach (ICD-10-PCS; principal; 2021-07-18)
PROC: 3E033GC Introduction of Other Therapeutic Substance into Peripheral Vein, Percutaneous Approach (ICD-10-PCS; principal; 2021-07-18)
DX: S43.004A Unspecified dislocation of right shoulder joint, initial encounter (principal); X50.9XXA Other and unspecified overexertion or strenuous movements or postures, initial encounter
CPT/HCPCS: 36415; 73030-TC-RT-FY; 80053; 85025; 99284-25

== ENCOUNTER 2021-09-03 12:16 | Emergency (ER) | payer OTHER ==
[2021-09-03] MEDS ORDERED: ONDANSETRON 4 MG/2 ML VIAL ONE (12:26)
[2021-09-03] MEDS ORDERED: morphine SULFATE 4 MG/ML VIAL ONE ×2 (12:26→12:57)
[2021-09-03] MEDS ORDERED: morphine CARPU-JECT 4 MG/1 ML DISP.SYRIN IVPUSH ONE ×2 (12:29→14:15)
[2021-09-03] MEDS ORDERED: MIDAZOLAM HCL 2 MG/2 ML SINGLE DOSE VIAL IVPUSH ONE ×2 (12:46→13:42)
[2021-09-03 12:47] VITALS: TEMP 97.9; BMI 27.3
[2021-09-03] MEDS ORDERED: MIDAZOLAM HCL 2 MG/2 ML SINGLE DOSE VIAL ONE ×3 (12:49→13:12)
[2021-09-03] MEDS ORDERED: LIDOCAINE HCL 1%, 10 MG/ML (20ML VIAL) ONE (12:55)
[2021-09-03] MEDS ORDERED: LIDOCAINE HCL 1%, 10 MG/ML (50 mL VIAL) SQ ONE (13:40)
[2021-09-03 16:28] VITALS: BP 122/86; PULSE 95
== END 2021-09-03 16:28 | disposition home or self-care (01) ==
LOC: JER 12:16
PROC: 0RSJXZZ Reposition Right Shoulder Joint, External Approach (ICD-10-PCS; principal; 2021-09-03)
PROC: 3E033GC Introduction of Other Therapeutic Substance into Peripheral Vein, Percutaneous Approach (ICD-10-PCS; 2021-09-03)
DX: S43.004A Unspecified dislocation of right shoulder joint, initial encounter (principal); Y99.8 Other external cause status
CPT/HCPCS: 23650; 73030-TC-RT-FY; 96374; 96375; 96376; 99284-25

== ENCOUNTER 2021-11-22 07:40 | Day surgery (SDC) | payer OTHER ==
[2021-11-13 17:10] VITALS: BMI 27.3
[2021-11-22] MEDS ORDERED: ROPIVACAINE HCL/PF 100 MG/20 ML VIAL ONE (10:18)
[2021-11-22] MEDS ORDERED: MIDAZOLAM HCL 2 MG/2 ML SINGLE DOSE VIAL ONE ×2 (10:18→11:11)
[2021-11-22] MEDS ORDERED: ROPIVACAINE HCL 0.5% 30ML VIAL ONE (10:32)
[2021-11-22] MEDS ORDERED: ONDANSETRON 4 MG/2 ML VIAL IVPUSH PRN (10:41)
[2021-11-22] MEDS ORDERED: PROMETHAZINE HCL 25 MG/1 ML VIAL IVPUSH PRN (10:41)
[2021-11-22] MEDS ORDERED: oxyCODONE HCL 5 MG TABLET PO PRN (10:41)
[2021-11-22] MEDS ORDERED: LACTATED RINGERS SOLUTION 1,000 ML IV SCH (10:45)
[2021-11-22] MEDS ORDERED: PROPOFOL 20 ML ONE ×2 (11:11→12:38)
[2021-11-22] MEDS ORDERED: SUCCINYLCHOLINE CHLORIDE 200 MG/10 ML SYRINGE ONE (11:12)
[2021-11-22] MEDS ORDERED: BUPIVACAINE HCL/EPINEPHRINE/PF 30 ML VIAL IJ ONE (12:12)
[2021-11-22] MEDS ORDERED: ACETAMINOPHEN 1000 MG/100 ML BAG IVPB ONE (14:00)
[2021-11-22] MEDS ORDERED: oxyCODONE HCL 5 MG TABLET ONE ×2 (14:32→16:30)
[2021-11-22 15:28] VITALS: TEMP 97.8
[2021-11-22 16:43] VITALS: BP 121/65; PULSE 85
== END 2021-11-22 16:40 | disposition home or self-care (01) ==
LOC: FASU 07:40
PROVIDERS: ATTEND Orthopaedic Surgery
PROC: 0RQJ4ZZ Repair Right Shoulder Joint, Percutaneous Endoscopic Approach (ICD-10-PCS; principal; 2021-11-22 12:18)
DX: M25.311 Other instability, right shoulder (principal); S43.499A Other sprain of unspecified shoulder joint, initial encounter; S43.014A Anterior dislocation of right humerus, initial encounter; X58.XXXA Exposure to other specified factors, initial encounter; Y93.9 Activity, unspecified; Y92.9 Unspecified place or not applicable
CPT/HCPCS: 84703; 94760; J0131

== ENCOUNTER 2022-05-23 04:45 | Inpatient (IN) | payer OTHER ==
[2022-05-16 14:56] VITALS: BMI 26.2
[2022-05-23] MEDS ORDERED: GABAPENTIN 300 MG CAPSULE PO ONE (07:00)
[2022-05-23] MEDS ORDERED: ACETAMINOPHEN 1000 MG/100 ML BAG IVPB ONE (07:00)
[2022-05-23] MEDS ORDERED: ACETAMINOPHEN INJECTION 100 ML IVPB ONE (07:02)
[2022-05-23] MEDS ORDERED: ceFAZolin SODIUM 1 GM VIAL ONE ×2 (07:02→18:14)
[2022-05-23] MEDS ORDERED: CEFAZOLIN 2 GM in DEXTROSE 5%-WATER - 100 ML IVPB ONE (08:00)
[2022-05-23] MEDS ORDERED: PHENAZOPYRIDINE HCL 100 MG TABLET (FP) PO ONE (08:00)
[2022-05-23] MEDS ORDERED: MIDAZOLAM HCL 2 MG/2 ML SINGLE DOSE VIAL ONE ×3 (09:20→09:36)
[2022-05-23] MEDS ORDERED: ROPIVACAINE HCL 0.5% 30ML VIAL ONE (09:24)
[2022-05-23] MEDS ORDERED: ceFAZolin SODIUM 1 GM VIAL IVPB ONE (10:15)
[2022-05-23] MEDS ORDERED: PROMETHAZINE HCL 25 MG/1 ML VIAL IVPB PRN (12:06)
[2022-05-23] MEDS ORDERED: DEXAMETHASONE SOD PHOSPHATE 4 MG/1 ML VIAL IVPUSH PRN (12:06)
[2022-05-23] MEDS ORDERED: ONDANSETRON 4 MG/2 ML VIAL IVPUSH PRN ×2 (12:06→12:36)
[2022-05-23] MEDS ORDERED: HYDROmorphone *PCA* 10MG/50ML DISP.SYRIN PCA SCH ×2 (12:15→12:36)
[2022-05-23] MEDS ORDERED: BISACODYL 5 MG TABLET.DR (FP) PO PRN (12:36)
[2022-05-23] MEDS ORDERED: FENTANYL CITRATE/PF 50 MCG/ML VIAL ONE ×2 (12:55→13:01)
[2022-05-23] MEDS ORDERED: SODIUM CHLORIDE 1,000 ML IV SCH (13:00)
[2022-05-23] MEDS ORDERED: IBUPROFEN 800 MG/8 ML IJ IVPB PRN (18:00)
[2022-05-23] MEDS: NICOTINE 7 MG/24 HOURS TOPICAL PATCH TD SCH (18:10)
[2022-05-23] MEDS ORDERED: DEXTROSE 5%-WATER - 50 ML IVPB ONE (18:14)
[2022-05-23] MEDS: CEFAZOLIN 1 GM in DEXTROSE 5%-WATER - 1 GM/50 ML IVPB IVPB SCH (18:19)
[2022-05-23] MEDS: ACETAMINOPHEN 325 MG TABLET (FP) PO SCH ×2 (18:19→22:07)
[2022-05-23] MEDS: SIMETHICONE 80 MG TAB.CHEW (FP) PO PRN ×2 (18:40→22:10)
[2022-05-23 21:13] LABS: HEMATOCRIT 36.3 % (32.4-45.2); HEMOGLOBIN 12.2 GM/dL (10.7-15.3); MCH 31.7 pg (25.7-33.7); MCHC 33.6 g/dl (32.0-36.0); MEAN CELL VOLUME 94.4 fl (80-96); MEAN PLT VOLUME 7.3 fl (7.5-11.1); PLATELET COUNT 255 10^3/uL (134-434); RBC 3.85 M/mm3 (3.60-5.2); RDW 14.4 % (11.6-15.6); WHITE BLOOD COUNT 13.8 K/mm3 (4.0-10.0)
[2022-05-23 21:31] LABS: BLOOD UREA NITROGEN 7.9 mg/dL (7-18)
[2022-05-23 21:34] LABS: CREATININE 0.6 mg/dL (0.55-1.3)
[2022-05-23 21:37] LABS: CALCIUM 7.8 mg/dL (8.5-10.1)
[2022-05-23] MEDS ORDERED: ZOLPIDEM TARTRATE 5 MG TABLET PO PRN (22:00)
[2022-05-23] MEDS: DOCUSATE SODIUM 100 MG CAPSULE (FP) PO PRN (22:10)
[2022-05-24] MEDS ORDERED: ceFAZolin SODIUM 1 GM VIAL ONE (01:51)
[2022-05-24] MEDS ORDERED: DEXTROSE 5%-WATER - 50 ML IVPB ONE (01:51)
[2022-05-24] MEDS ORDERED: BISACODYL 10 MG SUPP.RECT PR PRN (02:12)
[2022-05-24] MEDS: CEFAZOLIN 1 GM in DEXTROSE 5%-WATER - 1 GM/50 ML IVPB IVPB SCH (02:39)
[2022-05-24] MEDS: ACETAMINOPHEN 325 MG TABLET (FP) PO SCH ×6 (02:49→21:15)
[2022-05-24] MEDS ORDERED: HYDROmorphone HCl 2 MG/ML VIAL IVPUSH ONE (03:04)
[2022-05-24] MEDS ORDERED: GABAPENTIN 100 MG CAPSULE PO ONE (03:08)
[2022-05-24 03:46] LABS: BASO % 0.2 % (0-2.0); EOS % 1.3 % (0-4.5); HEMATOCRIT 34.6 % (32.4-45.2); HEMOGLOBIN 11.4 GM/dL (10.7-15.3); LYMPH % 10.8 % (8-40); MCH 31.5 pg (25.7-33.7); MCHC 32.9 g/dl (32.0-36.0); MEAN CELL VOLUME 95.7 fl (80-96); MEAN PLT VOLUME 7.3 fl (7.5-11.1); MONO % 4.5 % (3.8-10.2); NEUT % 83.2 % (42.8-82.8); PLATELET COUNT 237 10^3/uL (134-434); RBC 3.62 M/mm3 (3.60-5.2); RDW 14.6 % (11.6-15.6); WHITE BLOOD COUNT 11.4 K/mm3 (4.0-10.0)
[2022-05-24 04:07] LABS: CHLORIDE 96 mmol/L (98-107); SODIUM 129 mmol/L (136-145)
[2022-05-24 05:16] LABS: ALBUMIN 2.8 g/dl (3.4-5.0); ALK PHOS 71 U/L (45-117); ANION GAP 13 MMOL/L (8-16); BILIRUBIN,TOTAL 0.7 mg/dL (0.2-1); BLOOD UREA NITROGEN 5.8 mg/dL (7-18); CO2 21 mmol/L (21-32); CREATININE 1.9 mg/dL (0.55-1.3); GLUCOSE,RANDOM 487 mg/dL (74-106); SGOT/AST 15 U/L (15-37); SGPT/ALT 14 U/L (13-61); TOT PROT 5.1 g/dl (6.4-8.2)
[2022-05-24] MEDS: GABAPENTIN 100 MG CAPSULE PO SCH ×3 (06:19→21:15)
[2022-05-24 08:37] LABS: HEMATOCRIT 38.6 % (32.4-45.2); MCH 32.2 pg (25.7-33.7); MCHC 33.7 g/dl (32.0-36.0); MEAN CELL VOLUME 95.6 fl (80-96); MEAN PLT VOLUME 7.5 fl (7.5-11.1); PLATELET COUNT 258 10^3/uL (134-434); RBC 4.04 M/mm3 (3.60-5.2); RDW 14.4 % (11.6-15.6); WHITE BLOOD COUNT 10.2 K/mm3 (4.0-10.0)
[2022-05-24 08:55] LABS: BLOOD UREA NITROGEN 4.4 mg/dL (7-18)
[2022-05-24 08:58] LABS: CREATININE 0.5 mg/dL (0.55-1.3)
[2022-05-24] MEDS: ENOXAPARIN NA (PORCINE) 40 MG/0.4 ML DISP.SYRIN SQ SCH (09:44)
[2022-05-24] MEDS: NICOTINE 7 MG/24 HOURS TOPICAL PATCH TD SCH (09:50)
[2022-05-24] MEDS: SIMETHICONE 80 MG TAB.CHEW (FP) PO PRN ×2 (14:19→19:40)
[2022-05-24] MEDS: oxyCODONE HCL 5 MG TABLET PO PRN ×2 (15:55→19:40)
[2022-05-24] MEDS: DOCUSATE SODIUM 100 MG CAPSULE (FP) PO PRN (21:15)
[2022-05-25] MEDS: ACETAMINOPHEN 325 MG TABLET (FP) PO SCH ×3 (02:00→10:02)
[2022-05-25] MEDS: GABAPENTIN 100 MG CAPSULE PO SCH (06:02)
[2022-05-25] MEDS: oxyCODONE HCL 5 MG TABLET PO PRN ×2 (08:26→12:31)
[2022-05-25 09:39] VITALS: BP 122/79; PULSE 89; TEMP 98.7
[2022-05-25] MEDS: ENOXAPARIN NA (PORCINE) 40 MG/0.4 ML DISP.SYRIN SQ SCH (10:06)
[2022-05-25] MEDS: NICOTINE 7 MG/24 HOURS TOPICAL PATCH TD SCH (11:30)
[2022-05-25] MEDS: SIMETHICONE 80 MG TAB.CHEW (FP) PO PRN (12:31)
== END 2022-05-25 12:42 | disposition home or self-care (01) | DRG 519 ==
LOC: J2C 04:45 → J3W 14:26
PROVIDERS: ADMIT Obstetrics & Gynecology; ATTEND Obstetrics & Gynecology
PROC: 0UB70ZZ Excision of Bilateral Fallopian Tubes, Open Approach (ICD-10-PCS; 2022-05-23)
PROC: 0UT90ZZ Resection of Uterus, Open Approach (ICD-10-PCS; principal; 2022-05-23 08:30)
DX: D25.1 Intramural leiomyoma of uterus (principal)
CPT/HCPCS: 36415; 74018-TC-FY; 80048; 80053; 81025; 83605; 85025; 85027; 86850; 86900; 86901; 87040; 88307-TC; 94010; 94760; C9803-CS; U0003; U0005